=== PATIENT | male | born 1990 | race African-American/Black ===

== ENCOUNTER 2025-02-18 20:48 | Emergency (ER) | payer SELFPAY ==
[~2025-02-18] VITALS: Ht 188 cm; Wt 85.2 kg
[2025-02-18 20:55] VITALS: O2SAT 98
[2025-02-18] MEDS: KETOROLAC 15MG/ML VIAL IV ONE (21:48)
[2025-02-18] MEDS: ONDANSETRON HCL 4MG/2ML INJ IV ONE (21:48)
[2025-02-18] MEDS: MAGNESIUM/ALUMINUM HYDROXIDE/SIMETHICONE 30ML UDC PO ONE (21:48)
[2025-02-18 22:29] LABS: BASOPHILS % 0.2 % (0.0-2.0); EOSINOPHILS % 0.5 % (0.0-5.0); HEMATOCRIT. 38.1 % (42.0-52.0); HEMOGLOBIN. 12.0 g/dL (14.0-18.0); LYMPHOCYTES % 10.7 % (20.0-50.0); MEAN PLATELET VOLUME 9.9 fl (7.4-10.4); MONOCYTES % 3.1 % (2.0-8.0); NEUTROPHILS % 85.5 % (40.0-76.0); PLATELET 110 x1000/uL (130-400); RED BLOOD CELL COUNT 5.12 mill/uL (4.7-6.1); RED CELL DISTRIBUTION WIDTH 15.8 % (11.6-14.6)
[2025-02-18 23:02] LABS: CREATININE 1.3 mg/dL (0.6-1.3); PROTEIN TOTAL 7.3 g/dL (6.0-8.3); TROPONIN I HIGH SENSITIVITY < 4 ng/L (3.0-53); UREA NITROGEN BLOOD 10 mg/dL (9-23)
[2025-02-18 23:03] LABS: ASPARTATE AMINOTRANSFERASE 195 IU/L (<34)
[2025-02-18 23:04] LABS: BILIRUBIN TOTAL 2.0 mg/dL (0.1-1.0)
[2025-02-18 23:32] LABS: INR 1.0
[2025-02-19] MEDS: ACETAMINOPHEN 500MG TABLET PO ONE (03:22)
[2025-02-19] MEDS: LIDOCAINE 5% PATCH TOP SCH (03:22)
[2025-02-19] MEDS: MORPHINE SULFATE 2 MG/ML INJ (NOT FOR IM USE) IV ONE (03:22)
[2025-02-19] MEDS ORDERED: LIDO-53 TP (03:40)
[2025-02-19] MEDS ORDERED: APIX5TAB MT (03:40)
[2025-02-19] MEDS ORDERED: TOPUD PO (03:40)
[2025-02-19] MEDS: ENOXAPARIN 80MG/0.8ML SYR SUBCUT ONE (03:54)
[2025-02-19] MEDS ORDERED: IOHEXOL-350 100 ML BOTTLE ONE (04:07)
[2025-02-19 04:13] VITALS: BP 114/73; PULSE 60; RESP 18; TEMP 36.8; O2SAT 98
== END 2025-02-19 04:24 | disposition home or self-care (01) ==
LOC: ER 20:48
DX: I26.93 Single subsegmental thrombotic pulmonary embolism without acute cor pulmonale (principal); R06.02 Shortness of breath; Z79.899 Other long term (current) drug therapy
CPT/HCPCS: 80053; 83880; 83690; 85025; 85379; 85610; 85730; 84484; 36415; 71045; 93005; 96374; 96375 ×2; 99285; 71275; 96372; J1885; J2405; Z7610; Q9967; J1650; J2270